=== PATIENT | male | born 1950 | race Caucasian/White ===

== ENCOUNTER 2024-04-13 23:39 | Observation (INO) | payer MEDICARE, OTHER ==
[2024-04-13] MEDS ORDERED: DUONEB 0.5-3 MG/3 ml Neb IH ONE (23:49)
[2024-04-13 23:50] LABS: A-aADO2 520; ABG HEMOGLOBIN 13.9; ABG POTASSIUM 4.4 (3.5-5.1); ARTERIAL BLD GAS O2 SATURATION 98.1 % (95-100); ARTERIAL BLOOD GAS FIO2 100 %; ARTERIAL BLOOD GAS PO2 98 mmHg (75-100); ARTERIAL BLOOD GAS pH 7.18 (7.35-7.45); CARBOXYHEMOGLOBIN 2.2 % THgb (0.0-6.9); HCO3- 28.4 (22-28); HGB O2 SAT 95.2 g/dF (94-100); Lactic Acid 0.9 (0.4-2.0); Methhemoglobin 0.9 % (1.4-1.5); paO2 pAO1 0.16
[2024-04-13 23:51] LABS: ABG SITE RIGHT RADIAL; ALLEN TEST OK? YES; ARTERIAL BLOOD GAS PCO2 76 mmHg (35-45)
[2024-04-13] MEDS: DUONEB 0.5-3 MG/3 ml Neb IH ONE (23:53)
--- NOTE | 2024-04-13 23:53 | ERPHSYRPT ---
- History of Present Illness Time Seen by Provider: 04/13/24 23:40 Source: EMS Exam Limitations: clinical condition Physician History: This is a 73-year-old white male patient was brought in by the recording artist service because of worsening shortness of breath throughout the day. Apparently, per paramedics, who provided additional independent information secondary to page ent's clinical condition, patient started having worsening shortness of breath this morning. Paramedics were called this evening and patient was found in his car getting ready to drive to the emergency department. Patient continues to smoke tobacco cigarettes. He was found to be hypoxic on arrival paramedics. Patient was given a DuoNeb, Solu-Medrol 125 mg, nitroglycerin sublingually and Nitropaste to help with management of his potential CHF issues per paramedics. Patient arrives to our emergency department in atrial flutter with a heart rate of 101, respiratory rate of 17 breaths/min and 96% on CPAP. Patient has a history of atrial fibrillation/flutter and is taking Coreg and lisinopril for hypertension. Patient is also on Eliquis. He has a history of hyperlipidemia and COPD. Timing/Duration: today Severity of Dyspnea-Max: moderate Severity of Dyspnea-Current: moderate Modifying Factors: Improves With: albuterol nebulizer, oxygen Associated Symptoms: wheezing, weakness, No chest pain/discomfort Allergies/Adverse Reactions: Penicillins Allergy (Verified 04/13/24 23:41) Home Medications: Albuterol Sulfate [Proair Digihaler] 2 puffs IH DAILY 04/14/24 [History] Apixaban [Eliquis] 5 mg PO BID 04/14/24 [History] Atorvastatin Calcium [Lipitor] 20 mg PO DAILY 04/14/24 [History] Tiotropium [place] Inhaler [Spiriva 18 Mcg/Cap Inhaler] 2 puffs IH DAILY 04/14/24 [History] carvediloL [Coreg] 25 mg PO BID 04/14/24 [History] lisinopriL [Lisinopril] 40 mg PO DAILY 04/14/24 [History] Travel Risk - International Travel Have you traveled outside of the country in past 3 weeks: No - Emerging Infectious Disease Are you exhibiting symptoms associated with any current EIDs: Yes Symptoms: Shortness of Breath - Review of Systems Constitutional: Lethargy, Weakness Eyes: No Symptoms Ears, Nose, & Throat: No Symptoms Respiratory: Dyspnea, Wheezing Cardiac: No Symptoms Abdominal/Gastrointestinal: No Symptoms Genitourinary Symptoms: No Symptoms Musculoskeletal: No Symptoms Skin: No Symptoms Neurological: Lethargy Psychological: No Symptoms Endocrine: No Symptoms Hematologic/Lymphatic: No Symptoms Immunological/Allergic: No Symptoms All Other Systems: Reviewed and Negative - Past Medical History Pertinent Past Medical History: Yes - Nursing Vital Signs Nursing Vital Signs: Initial Vital Signs Temperature 97.3 F 04/13/24 23:39 Pulse Rate 104 H 04/13/24 23:39 Respiratory Rate 38 H 04/13/24 23:39 Blood Pressure 175/103 04/13/24 23:39 O2 Sat by Pulse Oximetry 95 04/13/24 23:39 Pain Scale Pain Intensity 0 - Physical Exam General Appearance: moderate distress, alert, thin Eye Exam: PERRL/EOMI, post op pupil defect (L) Ears, Nose, Throat Exam: hearing grossly normal, normal ENT inspection Neck Exam: normal inspection, non-tender, supple, full range of motion Respiratory Exam: respiratory distress, airway intact, crackles/rales, wheezing Cardiovascular/Chest Exam: tachycardia Abdominal/Gastrointestinal Exam: soft, normal bowel sounds, No tenderness Rectal Exam: not done Extremity Exam: non-tender, normal range of motion, pedal edema (Bilateral 1+) Neurologic Exam: other (Lethargic) Skin Exam: normal color, warm, diaphoresis Lymphatic Exam: No adenopathy SpO2 Interpretation: normal O2 Delivery: CPAP - Course Nursing assessment & vital signs reviewed: Yes EKG Interpreted by Me: RATE (101), NORMAL AXIS, NORMAL INTERVALS, Right Bundle Branch Block, Other (Atrial flutter. QTc 521. No evidence of acute ischemia on this initial twelve-lead EKG. No comparison twelve-lead EKG available) Ordered Tests: Active Orders 24 hr Category Date Time Status Structural Worker STAT Care 04/13/24 23:46 Active Catheter-[place] Geiger STAT Care 04/14/24 00:13 Active EKG-ER Only STAT Care 04/13/24 23:45 Active IV Insertion STAT Care 04/13/24 23:45 Active Pulse Oximetry (ED) STAT Care 04/13/24 23:45 Active CHEST 1 VIEW (PORTABLE) Stat Exams 04/13/24 23:46 Taken ABG [ARTERIAL BLOOD GASES] Stat Lab 04/14/24 01:08 Completed ARTERIAL BLOOD GASES Stat Lab 04/13/24 23:40 Completed CBC W DIFF Stat Lab 04/13/24 23:55 Completed CMP Stat Lab 04/13/24 23:55 Completed CULTURE,URINE Stat Lab 04/14/24 00:17 Received D-DIMER QUANTITATIVE Stat Lab 04/13/24 23:45 Completed Lactic Acid Stat Lab 04/13/24 23:40 Completed MAGNESIUM Stat Lab 04/13/24 23:55 Completed NT PRO BNPII Stat Lab 04/13/24 23:55 Completed POCT GLUCOSE Stat Lab 04/13/24 23:46 Completed TROPONIN Q4H Lab 04/13/24 23:55 Completed TROPONIN Q4H Lab 04/14/24 03:45 Ordered TROPONIN Q4H Lab 04/14/24 07:45 Ordered UA W/RFX UR CULTURE Stat Lab 04/14/24 00:17 Completed BiPap/CPAP STAT RT 04/13/24 23:45 Active Respiratory Therapy Assessment DAILY RT 04/14/24 00:13 Active Medication Summary Generic Name Dose Route Start Last Admin Trade Name Freq PRN Reason Stop Dose Admin Ceftriaxone Sodium 1 gm in 100 mls @ 200 mls/hr 04/14/24 01:33 04/14/24 01:51 Rocephin 1 Gm / 100 Ml Nacl IV 04/14/24 02:02 200 mls/hr STAT ONE 200 mls/hr Administration Discontinued Medications Generic Name Dose Route Start Last Admin Trade Name Freq PRN Reason Stop Dose Admin Albuterol/Ipratropium Confirm 04/13/24 23:49 Ipratropium/Albuterol Sulfate 3 Ml Ampul.Neb Administered 04/13/24 23:50 Dose 3 ml IH .STK-MED ONE Albuterol/Ipratropium 3 ml 04/14/24 00:12 04/13/24 23:53 Ipratropium/Albuterol Sulfate 3 Ml Ampul.Neb IH 04/14/24 00:13 3 ml STAT ONE Administration Sodium Chloride 1,000 mls @ 999 mls/hr 04/14/24 00:13 04/14/24 00:43 Sodium Chloride 0.9% 1000 Ml IV 04/14/24 01:13 999 mls/hr .Q1H1M STA Administration Sodium Chloride Confirm 04/14/24 00:42 Sodium Chloride 0.9% 1000 Ml Administered 04/14/24 00:43 Dose 1,000 mls @ ud .ROUTE .STK-MED ONE Ceftriaxone Sodium Confirm 04/14/24 01:48 Rocephin 1 Gm / 100 Ml Nacl Administered 04/14/24 01:49 Dose 1 gm in 100 mls @ ud IV .STK-MED ONE Sodium Bicarbonate 50 meq 04/13/24 23:49 04/14/24 00:07 Sodium Bicarbonate 1 Meq/Ml 50ml Syringe IV 04/13/24 23:50 50 meq STAT ONE Administration Sodium Bicarbonate Confirm 04/14/24 00:06 Sodium Bicarbonate 1 Meq/Ml 50ml Syringe Administered 04/14/24 00:07 Dose 50 meq IV .STK-MED ONE Lab/Rad Data: Laboratory Result Diagrams 04/13/24 23:55 04/13/24 23:55 Laboratory Results 04/14/24 04/14/24 04/13/24 Range/Units 01:08 00:17 Unknown WBC (4.23-9.07) x10^3/uL RBC (4.63-6.08) x10^6/uL Hgb (13.7-17.5) g/dL Hct (40.1-51.0) % MCV (79.0-92.2) fL MCH (25.7-32.2) pg MCHC (32.3-36.5) g/dL RDW (11.6-14.4) % Plt Count (163-337) x10^3/uL MPV (9.4-12.4) fL Gran % (34.0-67.9) % Immature Gran % (Auto) (0.001-0.429) % Nucleat RBC Rel Count (0.00-0.2) % Eos # (Auto) (0.04-0.54) x10^3/uL Immature Gran # (Auto) (0.001-0.031) x10^3u/L Absolute Lymphs (auto) (1.32-3.57) x10^3/uL Absolute Monos (auto) (0.30-0.82) x10^3/uL Absolute Nucleated RBC (0.00-0.012) x10^3u/L Lymphocytes % (21.8-53.1) % Monocytes % (5.3-12.2) % Eosinophils % (0.8-7.0) % Basophils % (0.2-1.2) % Absolute Granulocytes (1.78-5.38) x10^3/uL Basophils # (0.01-0.08) x10^3/uL D-Dimer (0.0-0.50) mg/L Puncture Site LRA pCO2 64 H* (35-45) mmHg pO2 211 H* (75-100) mmHg Base Excess 5.0 H (-2.0-2.0) O2 Saturation 96.9 (94-100) g/dF ABG pH 7.32 L (7.35-7.45) ABG HCO3 33.0 H* (22-28) ABG O2 Sat (Measured) 100.0 (95-100) % Camilo Test YES A-a Gradient 66 a/A Ratio 0.76 Hemoglobin 13.0 Carboxyhemoglobin 1.9 (0.0-6.9) % THgb Methemoglobin 1.2 L (1.4-1.5) % Potassium 4.4 (3.5-5.1) Temperature 37.0 C POC O2 Flow Rate 50 % Sodium (135-145) mmol/L Chloride (98-107) mmol/L Carbon Dioxide (22-30) mmol/L Anion Gap (5-15) MEQ/L BUN (9-20) mg/dL Creatinine (0.66-1.25) mg/dL Estimated GFR ML/MIN Glucose (74-106) mg/dL POC Glucometer (74 to 106) mg/dL Lactic Acid (0.4-2.0) Calcium (8.4-10.2) mg/dL Magnesium (1.6-2.3) mg/dL Total Bilirubin (0.2-1.3) mg/dL AST (17-59) U/L ALT (0-50) U/L Alkaline Phosphatase (38-126) U/L Ammonia (9-30) umol/L Troponin I (0.000-0.033) ng/mL NT-Pro-B Natriuret Pep (<300) pg/mL Serum Total Protein (6.3-8.2) g/dL Albumin (3.5-5.0) g/dL Urine Color Yellow (Yellow) Urine Appearance Clear (Clear) Urine pH 6.0 (4.6-8.0) Ur Specific [place] 1.010 (1.005-1.030) Urine Protein 30 (Negative) Urine Glucose (UA) Negative (Negative) mg/dL Urine Ketones Negative (Negative) Urine Blood Moderate A (Negative) Urine Nitrite Negative (Negative) Urine Bilirubin Negative (Negative) Urine Urobilinogen 1.0 A (0.2) mg/dL Ur Leukocyte Esterase Negative (Negative) U Hyaline Cast (Auto) 3-5 A (0-2) /LPF Urine Microscopic RBC 21-50 A (0-5) /HPF Urine Microscopic WBC 6-10 A (0-5) /HPF Ur Epithelial Cells None Seen (None Seen) /HPF Urine Bacteria None Seen (None Seen) /HPF Urine Culture Reflexed ORDERED SEPARATELY (NO) Monoscreen NEGATIVE (NEGATIVE) Influenza Type A Ag (NEGATIVE) Influenza Type B Ag (NEGATIVE) RSV (PCR) (NEGATIVE) SARS-CoV-2 (PCR) (NEGATIVE) Slides for Path Review 04/13/24 04/13/24 04/13/24 Range/Units 23:55 23:55 23:55 WBC (4.23-9.07) x10^3/uL RBC (4.63-6.08) x10^6/uL Hgb (13.7-17.5) g/dL Hct (40.1-51.0) % MCV (79.0-92.2) fL MCH (25.7-32.2) pg MCHC (32.3-36.5) g/dL RDW (11.6-14.4) % Plt Count (163-337) x10^3/uL MPV (9.4-12.4) fL Gran % (34.0-67.9) % Immature Gran % (Auto) (0.001-0.429) % Nucleat RBC Rel Count (0.00-0.2) % Eos # (Auto) (0.04-0.54) x10^3/uL Immature Gran # (Auto) (0.001-0.031) x10^3u/L Absolute Lymphs (auto) (1.32-3.57) x10^3/uL Absolute Monos (auto) (0.30-0.82) x10^3/uL Absolute Nucleated RBC (0.00-0.012) x10^3u/L Lymphocytes % (21.8-53.1) % Monocytes % (5.3-12.2) % Eosinophils % (0.8-7.0) % Basophils % (0.2-1.2) % Absolute Granulocytes (1.78-5.38) x10^3/uL Basophils # (0.01-0.08) x10^3/uL D-Dimer (0.0-0.50) mg/L Puncture Site pCO2 (35-45) mmHg pO2 (75-100) mmHg Base Excess (-2.0-2.0) O2 Saturation (94-100) g/dF ABG pH (7.35-7.45) ABG HCO3 (22-28) ABG O2 Sat (Measured) (95-100) % Camilo Test A-a Gradient a/A Ratio Hemoglobin Carboxyhemoglobin (0.0-6.9) % THgb Methemoglobin (1.4-1.5) % Potassium 4.5 (3.5-5.1) Temperature C POC O2 Flow Rate % Sodium 140 (135-145) mmol/L Chloride 103 (98-107) mmol/L Carbon Dioxide 28 (22-30) mmol/L Anion Gap 14.3 (5-15) MEQ/L BUN 14 (9-20) mg/dL Creatinine 1.27 H (0.66-1.25) mg/dL Estimated GFR 60.4 ML/MIN Glucose 169 H (74-106) mg/dL POC Glucometer (74 to 106) mg/dL Lactic Acid (0.4-2.0) Calcium 8.7 (8.4-10.2) mg/dL Magnesium 1.9 (1.6-2.3) mg/dL Total Bilirubin 0.90 (0.2-1.3) mg/dL AST 23 (17-59) U/L ALT 18 (0-50) U/L Alkaline Phosphatase 150 H (38-126) U/L Ammonia 36 H (9-30) umol/L Troponin I < 0.012 (0.000-0.033) ng/mL NT-Pro-B Natriuret Pep 689 (<300) pg/mL Serum Total Protein 7.7 (6.3-8.2) g/dL Albumin 4.1 (3.5-5.0) g/dL Urine Color (Yellow) Urine Appearance (Clear) Urine pH (4.6-8.0) Ur Specific [place] (1.005-1.030) Urine Protein (Negative) Urine Glucose (UA) (Negative) mg/dL Urine Ketones (Negative) Urine Blood (Negative) Urine Nitrite (Negative) Urine Bilirubin (Negative) Urine Urobilinogen (0.2) mg/dL Ur Leukocyte Esterase (Negative) U Hyaline Cast (Auto) (0-2) /LPF Urine Microscopic RBC (0-5) /HPF Urine Microscopic WBC (0-5) /HPF Ur Epithelial Cells (None Seen) /HPF Urine Bacteria (None Seen) /HPF Urine Culture Reflexed (NO) Monoscreen (NEGATIVE) Influenza Type A Ag (NEGATIVE) Influenza Type B Ag (NEGATIVE) RSV (PCR) (NEGATIVE) SARS-CoV-2 (PCR) (NEGATIVE) Slides for Path Review 04/13/24 04/13/24 04/13/24 Range/Units 23:55 23:46 23:45 WBC 13.4 H (4.23-9.07) x10^3/uL RBC 4.54 L (4.63-6.08) x10^6/uL Hgb 13.6 L (13.7-17.5) g/dL Hct 41.8 (40.1-51.0) % MCV 92.1 (79.0-92.2) fL MCH 30.0 (25.7-32.2) pg MCHC 32.5 (32.3-36.5) g/dL RDW 12.5 (11.6-14.4) % Plt Count 189 (163-337) x10^3/uL MPV 11.2 (9.4-12.4) fL Gran % 45.7 (34.0-67.9) % Immature Gran % (Auto) 0.4 (0.001-0.429) % Nucleat RBC Rel Count 0.0 (0.00-0.2) % Eos # (Auto) 0.81 H (0.04-0.54) x10^3/uL Immature Gran # (Auto) 0.05 H (0.001-0.031) x10^3u/L Absolute Lymphs (auto) 5.04 H (1.32-3.57) x10^3/uL Absolute Monos (auto) 1.21 H (0.30-0.82) x10^3/uL Absolute Nucleated RBC 0.00 (0.00-0.012) x10^3u/L Lymphocytes % 37.7 (21.8-53.1) % Monocytes % 9.1 (5.3-12.2) % Eosinophils % 6.1 (0.8-7.0) % Basophils % 1.0 (0.2-1.2) % Absolute Granulocytes 6.13 H (1.78-5.38) x10^3/uL Basophils # 0.13 H (0.01-0.08) x10^3/uL D-Dimer 0.46 (0.0-0.50) mg/L Puncture Site pCO2 (35-45) mmHg pO2 (75-100) mmHg Base Excess (-2.0-2.0) O2 Saturation (94-100) g/dF ABG pH (7.35-7.45) ABG HCO3 (22-28) ABG O2 Sat (Measured) (95-100) % Camilo Test A-a Gradient a/A Ratio Hemoglobin Carboxyhemoglobin (0.0-6.9) % THgb Methemoglobin (1.4-1.5) % Potassium (3.5-5.1) Temperature C POC O2 Flow Rate % Sodium (135-145) mmol/L Chloride (98-107) mmol/L Carbon Dioxide (22-30) mmol/L Anion Gap (5-15) MEQ/L BUN (9-20) mg/dL Creatinine (0.66-1.25) mg/dL Estimated GFR ML/MIN Glucose (74-106) mg/dL POC Glucometer 160 H (74 to 106) mg/dL Lactic Acid (0.4-2.0) Calcium (8.4-10.2) mg/dL Magnesium (1.6-2.3) mg/dL Total Bilirubin (0.2-1.3) mg/dL AST (17-59) U/L ALT (0-50) U/L Alkaline Phosphatase (38-126) U/L Ammonia (9-30) umol/L Troponin I (0.000-0.033) ng/mL NT-Pro-B Natriuret Pep (<300) pg/mL Serum Total Protein (6.3-8.2) g/dL Albumin (3.5-5.0) g/dL Urine Color (Yellow) Urine Appearance (Clear) Urine pH (4.6-8.0) Ur Specific [place] (1.005-1.030) Urine Protein (Negative) Urine Glucose (UA) (Negative) mg/dL Urine Ketones (Negative) Urine Blood (Negative) Urine Nitrite (Negative) Urine Bilirubin (Negative) Urine Urobilinogen (0.2) mg/dL Ur Leukocyte Esterase (Negative) U Hyaline Cast (Auto) (0-2) /LPF Urine Microscopic RBC (0-5) /HPF Urine Microscopic WBC (0-5) /HPF Ur Epithelial Cells (None Seen) /HPF Urine Bacteria (None Seen) /HPF Urine Culture Reflexed (NO) Monoscreen (NEGATIVE) Influenza Type A Ag (NEGATIVE) Influenza Type B Ag (NEGATIVE) RSV (PCR) (NEGATIVE) SARS-CoV-2 (PCR) (NEGATIVE) Slides for Path Review YES 04/13/24 04/13/24 Range/Units 23:40 00:10 WBC (4.23-9.07) x10^3/uL RBC (4.63-6.08) x10^6/uL Hgb (13.7-17.5) g/dL Hct (40.1-51.0) % MCV (79.0-92.2) fL MCH (25.7-32.2) pg MCHC (32.3-36.5) g/dL RDW (11.6-14.4) % Plt Count (163-337) x10^3/uL MPV (9.4-12.4) fL Gran % (34.0-67.9) % Immature Gran % (Auto) (0.001-0.429) % Nucleat RBC Rel Count (0.00-0.2) % Eos # (Auto) (0.04-0.54) x10^3/uL Immature Gran # (Auto) (0.001-0.031) x10^3u/L Absolute Lymphs (auto) (1.32-3.57) x10^3/uL Absolute Monos (auto) (0.30-0.82) x10^3/uL Absolute Nucleated RBC (0.00-0.012) x10^3u/L Lymphocytes % (21.8-53.1) % Monocytes % (5.3-12.2) % Eosinophils % (0.8-7.0) % Basophils % (0.2-1.2) % Absolute Granulocytes (1.78-5.38) x10^3/uL Basophils # (0.01-0.08) x10^3/uL D-Dimer (0.0-0.50) mg/L Puncture Site RIGHT RADIAL pCO2 76 H* (35-45) mmHg pO2 98 (75-100) mmHg Base Excess -2.0 (-2.0-2.0) O2 Saturation 95.2 (94-100) g/dF ABG pH 7.18 L* (7.35-7.45) ABG HCO3 28.4 H (22-28) ABG O2 Sat (Measured) 98.1 (95-100) % Camilo Test YES A-a Gradient 520 a/A Ratio 0.16 Hemoglobin 13.9 Carboxyhemoglobin 2.2 (0.0-6.9) % THgb Methemoglobin 0.9 L (1.4-1.5) % Potassium 4.4 (3.5-5.1) Temperature 37.0 C POC O2 Flow Rate 100 % Sodium (135-145) mmol/L Chloride (98-107) mmol/L Carbon Dioxide (22-30) mmol/L Anion Gap (5-15) MEQ/L BUN (9-20) mg/dL Creatinine (0.66-1.25) mg/dL Estimated GFR ML/MIN Glucose (74-106) mg/dL POC Glucometer (74 to 106) mg/dL Lactic Acid 0.9 (0.4-2.0) Calcium (8.4-10.2) mg/dL Magnesium (1.6-2.3) mg/dL Total Bilirubin (0.2-1.3) mg/dL AST (17-59) U/L ALT (0-50) U/L Alkaline Phosphatase (38-126) U/L Ammonia (9-30) umol/L Troponin I (0.000-0.033) ng/mL NT-Pro-B Natriuret Pep (<300) pg/mL Serum Total Protein (6.3-8.2) g/dL Albumin (3.5-5.0) g/dL Urine Color (Yellow) Urine Appearance (Clear) Urine pH (4.6-8.0) Ur Specific [place] (1.005-1.030) Urine Protein (Negative) Urine Glucose (UA) (Negative) mg/dL Urine Ketones (Negative) Urine Blood (Negative) Urine Nitrite (Negative) Urine Bilirubin (Negative) Urine Urobilinogen (0.2) mg/dL Ur Leukocyte Esterase (Negative) U Hyaline Cast (Auto) (0-2) /LPF Urine Microscopic RBC (0-5) /HPF Urine Microscopic WBC (0-5) /HPF Ur Epithelial Cells (None Seen) /HPF Urine Bacteria (None Seen) /HPF Urine Culture Reflexed (NO) Monoscreen (NEGATIVE) Influenza Type A Ag NEGATIVE (NEGATIVE) Influenza Type B Ag NEGATIVE (NEGATIVE) RSV (PCR) NEGATIVE (NEGATIVE) SARS-CoV-2 (PCR) NEGATIVE (NEGATIVE) Slides for Path Review - Progress Progress: improved, re-examined Air Movement: fair Progress Note: 04/13/24 23:54 My medical decision making and the assignment of high complexity to this patient's medical issue today is based on review of the patient's past medical history, review of patient's medication list, review of patient drug allergy list, history present illness and physical findings on examination. The workup in this patient includes placement of the patient on BiPAP, twelve-lead EKG, troponin level, D-dimer level, BNP, CBC, CMP, lactic acid level, ammonia level, CT scan of head without contrast, ABG, respiratory therapy intervention/management. Differential diagnosis includes but is not limited to respiratory distress, CHF exacerbation, COPD exacerbation, myocardial infarction, arrhythmia, electrolyte abnormality, pneumonia 04/14/24 00:14 I interpreted the second twelve-lead EKG that was performed approximately 5 minutes after the first 1 as we were not particularly confident that the leads were on well. The second twelve-lead EKG was performed on 04/13/2024 at 2348. Heart rate is 95 bpm. The patient has a rhythm of atrial flutter. There is nor mal axis deviation. There is normal intervals. There is evidence of right bundle branch block. The QTc is 504. This is not significantly different than the twelve-lead EKG that was performed at 2343. There is no evidence of acute ischemia on the second twelve-lead EKG. 04/14/24 00:17 Interpreted the patient's preliminary chest x-ray report. There is a questionable right mid to lower lobe lung infiltrate. 04/14/24 01:53 Chronically, the patient is doing much better. We will have respiratory therapy continue with their management and wean him off BiPAP while he is on the monitor floor. I spoke with Dr. Barksdale and I reviewed the patient history, clinical findings, and the patient's response to our medical management as well as the results of the workup performed. We both agree that the patient should be placed in the hospital on telemetry and provide him with continued respiratory t herapy management, intravenous antibiotics of Rocephin and azithromycin and repeat labs and twelve-lead EKG. Blood Culture(s) Obtained: Yes Antibiotics given: Yes Discussed with : Lissy Counseled pt/family regarding: lab results, diagnosis, need for follow-up, rad results Medical Desision Making - Discussion of managment Care discussed with:: hospitalist Reviewed:: Test results, Need for additional workup - Diagnostic Testing Diagnostic test were ordered, analyzed, and reviewed by me: Yes Radiological Interpretation: Interpreted by me - Risk of complications The pt has a high risk of morbidity or mortality based on: Decision regarding hospitilization or escalation of hosp level of care - Departure Departure Disposition: Observation Clinical Impression: Pneumonia, Acute respiratory failure with hypoxia and hypercarbia, Leukocytosis Condition: Fair Critical Care Time: Yes Critical Care Time(excluding separately billable procedures): Critical 30-74 mins (55 minutes) Referrals: DOCTOR,NO FAMILY [Primary Care Provider] - Follow up/PCP as directed
[2024-04-14] MEDS ORDERED: SODIUM BICARBONATE 50 MEQ/50 ML ABBOJECT IV ONE (00:06)
[2024-04-14] MEDS: SODIUM BICARBONATE 50 MEQ/50 ML ABBOJECT IV ONE (00:07)
[2024-04-14 00:20] LABS: Absolute Neutrophil Ct (ANC) 6.13 x10^3/uL (1.78-5.38); Basophil (Absolute #) 0.13 x10^3/uL (0.01-0.08); Eosinophil % 6.1 % (0.8-7.0); Eosinophil (Absolute #) 0.81 x10^3/uL (0.04-0.54); Hematocrit 41.8 % (40.1-51.0); Hemoglobin 13.6 g/dL (13.7-17.5); IMMATURE GRAN # 0.05 x10^3u/L (0.001-0.031); IMMATURE GRAN % 0.4 % (0.001-0.429); Lymphocyte (Absolute #) 5.04 x10^3/uL (1.32-3.57); Lymphocytes % 37.7 % (21.8-53.1); Mean Cell Volume 92.1 fL (79.0-92.2); Mean Corpuscular Hgb Concent. 32.5 g/dL (32.3-36.5); Mean Platelet Volume 11.2 fL (9.4-12.4); Monocyte (Absolute #) 1.21 x10^3/uL (0.30-0.82); Monocytes % 9.1 % (5.3-12.2); Neutrophil % 45.7 % (34.0-67.9); Platelet Count 189 x10^3/uL (163-337); Red Blood Count 4.54 x10^6/uL (4.63-6.08); Red Cell Distribution Width 12.5 % (11.6-14.4); White Blood Count 13.4 x10^3/uL (4.23-9.07)
[2024-04-14 00:38] LABS: ALBUMIN 4.1 g/dL (3.5-5.0); ALKALINE PHOSPHATASE 150 U/L (38-126); ANION GAP 14.3 MEQ/L (5-15); BLOOD UREA NITROGEN 14 mg/dL (9-20); CHLORIDE 103 mmol/L (98-107); Calcium 8.7 mg/dL (8.4-10.2); Carbon Dioxide 28 mmol/L (22-30); Creatinine 1 1.27 mg/dL (0.66-1.25); EST GLOMERULAR FILTRATION RATE 60.4 ML/MIN; Glucose 169 mg/dL (74-106); MAGNESIUM 1.9 mg/dL (1.6-2.3); Potassium 4.5 mmol/L (3.5-5.1); SGOT/AST 23 U/L (17-59); SGPT/ALT 18 U/L (0-50); SODIUM 140 mmol/L (135-145); TROPONIN < 0.012 ng/mL (0.000-0.033); Total Protein 7.7 g/dL (6.3-8.2)
[2024-04-14] MEDS ORDERED: Sodium Chloride 0.9% 1000 ML 1,000 ML ONE (00:42)
[2024-04-14] MEDS: Sodium Chloride 0.9% 1000 ML 1,000 ML IV STA (00:43)
[2024-04-14 00:49] LABS: ADD URINE CULTURE? ORDERED SEPARATELY (NO); Appearance Clear (Clear); Bacteria None Seen /HPF (None Seen); Bilirubin Negative (Negative); Blood Moderate (Negative); Epithelial Cells None Seen /HPF (None Seen); Glucose, Urine Negative (Negative); Ketones Negative (Negative); Leukocyte Esterase Negative (Negative); Nitrite Negative (Negative); Protein,Urine Dip 30 (Negative); RBC 21-50 /HPF (0-5)
[2024-04-14 01:02] LABS: INFLUENZA A NEGATIVE (NEGATIVE); INFLUENZA B NEGATIVE (NEGATIVE); RESPIRATORY SYNCTIAL VIRUS NEGATIVE (NEGATIVE); SARS-CoV-2 Xpert Express NEGATIVE (NEGATIVE)
[2024-04-14 01:08] LABS: A-aADO2 66; ABG POTASSIUM 4.4 (3.5-5.1); ARTERIAL BLOOD GAS FIO2 50 %; ARTERIAL BLOOD GAS PO2 211 mmHg (75-100); ARTERIAL BLOOD GAS pH 7.32 (7.35-7.45); CARBOXYHEMOGLOBIN 1.9 % THgb (0.0-6.9); HGB O2 SAT 96.9 g/dF (94-100); Methhemoglobin 1.2 % (1.4-1.5); paO2 pAO1 0.76
[2024-04-14 01:09] LABS: ABG SITE LRA; ARTERIAL BLOOD GAS PCO2 64 mmHg (35-45)
[2024-04-14 01:10] LABS: ALLEN TEST OK? YES
[2024-04-14 01:28] LABS: Slide Review 1 YES
[2024-04-14] MEDS ORDERED: ROCEPHIN 1 GM / 100 ML NaCl 1 GM/100 ML IVPB IV ONE (01:48)
[2024-04-14] MEDS: ROCEPHIN 1 GM / 100 ML NaCl 1 GM/100 ML IVPB IV ONE (01:51)
[2024-04-14] MEDS ORDERED: TYLENOL 325 MG PO PRN (02:51)
[2024-04-14] MEDS ORDERED: Compazine 10 MG/2 ML IV PRN (02:51)
--- NOTE | 2024-04-14 03:50 | PCM.HP ---
History of Present Illness - Chief Complaint Chief Complaint: COPD Date: 04/14/24 History of Present Illness: is a 73 year old male with a history of COPD (not on home oxygen), CHF, atrial fibrillation/flutter, and HTN, who was brought in by the field service manager macarioic e because of worsening shortness of breath throughout the day. Apparently, per paramedics, who provided additional independent information secondary to patient's clinical condition, patient started having worsening shortness of breath this morning. Paramedics were called this evening and patient was found in his car getting ready to drive to the emergency department. Patient continues to smoke tobacco cigarettes. He was found to be hypoxic on arrival paramedics. Patient was given a DuoNeb, Solu-Medrol 125 mg, nitroglycerin sublingually and Nitropaste to help with management of his potential CHF issues per paramedics. Patient arrives to our emergency department in atrial flutter with a heart rate of 101, respiratory rate of 17 breaths/min and 96% on CPAP. Patient has a history of atrial fibrillation/flutter and is taking Coreg and lisinopril for hypertension. Patient is also on Eliquis. He has a history of hyperlipidemia and COPD. He has demonstrated significant improvement after initial therapy with improved dypsnea, and has been weaned to oxygen per OR. A Geiger had been placed in the ED, and will be removed. - Review of Systems Constitutional: Fatigue Eyes: No Symptoms Ears, Nose, & Throat: No Symptoms Respiratory: Cough, Short Of Breath, Wheezing Cardiac: No Symptoms Abdominal/Gastrointestinal: No Symptoms Genitourinary Symptoms: No Symptoms Musculoskeletal: No Symptoms Skin: No Symptoms Neurological: No Symptoms Psychological: No Symptoms Endocrine: No Symptoms Hematologic/Lymphatic: No Symptoms Immunological/Allergic: No Symptoms Medications & Allergies Home Medications: Home Medication List Albuterol Sulfate [Proair Digihaler] 2 puffs IH DAILY 04/14/24 [History Confirmed 04/14/24] Apixaban [Eliquis] 5 mg PO BID 04/14/24 [History Confirmed 04/14/24] Aspirin EC 81 mg [Ecotrin 81 mg] 1 tab PO DAILY 04/14/24 [History Confirmed 04/14/24] Atorvastatin Calcium [Lipitor] 20 mg PO DAILY 04/14/24 [History Confirmed 04/14/24] Tiotropium [place] Inhaler [Spiriva 18 Mcg/Cap Inhaler] 2 puffs IH DAILY 04/14/24 [History Confirmed 04/14/24] carvediloL [Coreg] 25 mg PO BID 04/14/24 [History Confirmed 04/14/24] lisinopriL [Lisinopril] 40 mg PO DAILY 04/14/24 [History Confirmed 04/14/24] Allergies/Adverse Reactions: Allergies Allergy/AdvReac Type Severity Reaction Status Date / Time Penicillins Allergy Verified 04/13/24 23:41 - Past Medical History Past Medical History: Yes Neurological History: No Pertinent History ENT History: No Pertinent History Cardiac History: Other Respiratory History: No Pertinent History Endocrine Medical History: No Pertinent History Musculoskelatal History: Other GI Medical History: Gallbladder Disease, Hernia History: No Pertinent History Pyscho-Social History: No Pertinent History Male Reproductive Disorders: No Pertinent History Comment: pulmonic valve surgery x 3, shoulder pain - Past Surgical History Past Surgical History: Yes Neuro Surgical History: No Pertinent History Cardiac History: Valve Replacement Respiratory Surgery: No Pertinent History GI Surgical History: Cholecystectomy, Hernia Repair Genitourinary Surgical Hx: No Pertinent History Musculskeletal Surgical Hx: No Pertinent History Male Surgical History: No Pertinent History Other Surgical History: unable to obtaine - Social History Smoking Status: Former smoker Exposure to second hand smoke: No Alcohol: None Drug Use: none - Social Determinants of Health Will the patient participate in the screening: Yes Do you worry about a steady place to live?: No Do you have any problems with any of the following?: No known problems In the past 12 months,have you had to go without utilities?: No Have you or anyone in your house had to go without enough: No Transportation Issues: No Has anyone in your support network made you feel unsafe?: No Does the patient want assistance with any of the above?: No - Physical Exam Vital Signs: Vital Signs - 24 hr Temp Pulse Resp BP BP Pulse Ox 04/14/24 02:52 96.7 F 111 H 24 145/68 90 L 04/14/24 02:35 92 H 20 107/85 98 04/14/24 02:00 98.1 F 103 H 18 120/82 97 04/14/24 01:40 97.9 F 103 H 19 133/76 98 04/14/24 01:30 97.9 F 111 H 20 123/81 97 04/14/24 01:20 97.9 F 112 H 19 122/80 97 04/14/24 01:10 98.1 F 113 H 22 111/74 98 04/14/24 01:00 98.2 F 114 H 25 H 108/75 99 04/14/24 00:50 98.4 F 114 H 28 H 95/65 99 04/14/24 00:40 98.6 F 114 H 26 H 89/64 99 04/14/24 00:30 98.6 F 114 H 22 82/56 99 04/14/24 00:20 98.6 F 115 H 22 86/67 99 04/14/24 00:10 103 H 26 H 115/76 100 04/14/24 00:04 23 100 04/14/24 00:02 100 04/14/24 00:00 102 H 29 H 124/78 100 04/13/24 23:53 69 30 H 99 04/13/24 23:50 111 H 29 H 152/91 100 04/13/24 23:45 109 H 36 H 165/106 99 04/13/24 23:40 92 H 36 H 170/108 96 04/13/24 23:39 97.3 F 104 H 38 H 175/103 95 General Appearance: no apparent distress, alert Neurologic Exam: alert, oriented x 3, cooperative, flower grader II-XII nml as tested, normal mood/affect, nml cerebellar function Eye Exam: PERRL/EOMI, eyes nml inspection Ears, Nose, Throat Exam: normal ENT inspection Neck Exam: normal inspection, non-tender, supple, full range of motion Respiratory Exam: diminished breath sounds, prolonged expirations, rhonchi Cardiovascular Exam: irregular Gastrointestinal/Abdomen Exam: soft, normal bowel sounds Back Exam: normal range of motion Extremity Exam: normal inspection, normal range of motion Skin Exam: normal color Results - Labs Lab/Micro Results: Lab Results-Last 24 Hours 04/13/24 04/13/24 04/13/24 Range/Units 00:10 23:40 23:45 WBC (4.23-9.07) x10^3/uL RBC (4.63-6.08) x10^6/uL Hgb (13.7-17.5) g/dL Hct (40.1-51.0) % MCV (79.0-92.2) fL MCH (25.7-32.2) pg MCHC (32.3-36.5) g/dL RDW (11.6-14.4) % Plt Count (163-337) x10^3/uL MPV (9.4-12.4) fL Gran % (34.0-67.9) % Immature Gran % (Auto) (0.001-0.429) % Nucleat RBC Rel Count (0.00-0.2) % Eos # (Auto) (0.04-0.54) x10^3/uL Immature Gran # (Auto) (0.001-0.031) x10^3u/L Absolute Lymphs (auto) (1.32-3.57) x10^3/uL Absolute Monos (auto) (0.30-0.82) x10^3/uL Absolute Nucleated RBC (0.00-0.012) x10^3u/L Lymphocytes % (21.8-53.1) % Monocytes % (5.3-12.2) % Eosinophils % (0.8-7.0) % Basophils % (0.2-1.2) % Absolute Granulocytes (1.78-5.38) x10^3/uL Basophils # (0.01-0.08) x10^3/uL D-Dimer 0.46 (0.0-0.50) mg/L Puncture Site RIGHT RADIAL pCO2 76 H* (35-45) mmHg pO2 98 (75-100) mmHg Base Excess -2.0 (-2.0-2.0) O2 Saturation 95.2 (94-100) g/dF ABG pH 7.18 L* (7.35-7.45) ABG HCO3 28.4 H (22-28) ABG O2 Sat (Measured) 98.1 (95-100) % Camilo Test YES A-a Gradient 520 a/A Ratio 0.16 Hemoglobin 13.9 Carboxyhemoglobin 2.2 (0.0-6.9) % THgb Methemoglobin 0.9 L (1.4-1.5) % Potassium 4.4 (3.5-5.1) Temperature 37.0 C POC O2 Flow Rate 100 % Sodium (135-145) mmol/L Chloride (98-107) mmol/L Carbon Dioxide (22-30) mmol/L Anion Gap (5-15) MEQ/L BUN (9-20) mg/dL Creatinine (0.66-1.25) mg/dL Estimated GFR ML/MIN Glucose (74-106) mg/dL POC Glucometer (74 to 106) mg/dL Lactic Acid 0.9 (0.4-2.0) Calcium (8.4-10.2) mg/dL Magnesium (1.6-2.3) mg/dL Total Bilirubin (0.2-1.3) mg/dL AST (17-59) U/L ALT (0-50) U/L Alkaline Phosphatase (38-126) U/L Ammonia (9-30) umol/L Troponin I (0.000-0.033) ng/mL NT-Pro-B Natriuret Pep (<300) pg/mL Serum Total Protein (6.3-8.2) g/dL Albumin (3.5-5.0) g/dL Urine Color (Yellow) Urine Appearance (Clear) Urine pH (4.6-8.0) Ur Specific [place] (1.005-1.030) Urine Protein (Negative) Urine Glucose (UA) (Negative) mg/dL Urine Ketones (Negative) Urine Blood (Negative) Urine Nitrite (Negative) Urine Bilirubin (Negative) Urine Urobilinogen (0.2) mg/dL Ur Leukocyte Esterase (Negative) U Hyaline Cast (Auto) (0-2) /LPF Urine Microscopic RBC (0-5) /HPF Urine Microscopic WBC (0-5) /HPF Ur Epithelial Cells (None Seen) /HPF Urine Bacteria (None Seen) /HPF Urine Culture Reflexed (NO) Monoscreen (NEGATIVE) Influenza Type A Ag NEGATIVE (NEGATIVE) Influenza Type B Ag NEGATIVE (NEGATIVE) RSV (PCR) NEGATIVE (NEGATIVE) SARS-CoV-2 (PCR) NEGATIVE (NEGATIVE) Slides for Path Review 04/13/24 04/13/24 04/13/24 Range/Units 23:46 23:55 23:55 WBC 13.4 H (4.23-9.07) x10^3/uL RBC 4.54 L (4.63-6.08) x10^6/uL Hgb 13.6 L (13.7-17.5) g/dL Hct 41.8 (40.1-51.0) % MCV 92.1 (79.0-92.2) fL MCH 30.0 (25.7-32.2) pg MCHC 32.5 (32.3-36.5) g/dL RDW 12.5 (11.6-14.4) % Plt Count 189 (163-337) x10^3/uL MPV 11.2 (9.4-12.4) fL Gran % 45.7 (34.0-67.9) % Immature Gran % (Auto) 0.4 (0.001-0.429) % Nucleat RBC Rel Count 0.0 (0.00-0.2) % Eos # (Auto) 0.81 H (0.04-0.54) x10^3/uL Immature Gran # (Auto) 0.05 H (0.001-0.031) x10^3u/L Absolute Lymphs (auto) 5.04 H (1.32-3.57) x10^3/uL Absolute Monos (auto) 1.21 H (0.30-0.82) x10^3/uL Absolute Nucleated RBC 0.00 (0.00-0.012) x10^3u/L Lymphocytes % 37.7 (21.8-53.1) % Monocytes % 9.1 (5.3-12.2) % Eosinophils % 6.1 (0.8-7.0) % Basophils % 1.0 (0.2-1.2) % Absolute Granulocytes 6.13 H (1.78-5.38) x10^3/uL Basophils # 0.13 H (0.01-0.08) x10^3/uL D-Dimer (0.0-0.50) mg/L Puncture Site pCO2 (35-45) mmHg pO2 (75-100) mmHg Base Excess (-2.0-2.0) O2 Saturation (94-100) g/dF ABG pH (7.35-7.45) ABG HCO3 (22-28) ABG O2 Sat (Measured) (95-100) % Camilo Test A-a Gradient a/A Ratio Hemoglobin Carboxyhemoglobin (0.0-6.9) % THgb Methemoglobin (1.4-1.5) % Potassium 4.5 (3.5-5.1) Temperature C POC O2 Flow Rate % Sodium 140 (135-145) mmol/L Chloride 103 (98-107) mmol/L Carbon Dioxide 28 (22-30) mmol/L Anion Gap 14.3 (5-15) MEQ/L BUN 14 (9-20) mg/dL Creatinine 1.27 H (0.66-1.25) mg/dL Estimated GFR 60.4 ML/MIN Glucose 169 H (74-106) mg/dL POC Glucometer 160 H (74 to 106) mg/dL Lactic Acid (0.4-2.0) Calcium 8.7 (8.4-10.2) mg/dL Magnesium 1.9 (1.6-2.3) mg/dL Total Bilirubin 0.90 (0.2-1.3) mg/dL AST 23 (17-59) U/L ALT 18 (0-50) U/L Alkaline Phosphatase 150 H (38-126) U/L Ammonia (9-30) umol/L Troponin I < 0.012 (0.000-0.033) ng/mL NT-Pro-B Natriuret Pep (<300) pg/mL Serum Total Protein 7.7 (6.3-8.2) g/dL Albumin 4.1 (3.5-5.0) g/dL Urine Color (Yellow) Urine Appearance (Clear) Urine pH (4.6-8.0) Ur Specific [place] (1.005-1.030) Urine Protein (Negative) Urine Glucose (UA) (Negative) mg/dL Urine Ketones (Negative) Urine Blood (Negative) Urine Nitrite (Negative) Urine Bilirubin (Negative) Urine Urobilinogen (0.2) mg/dL Ur Leukocyte Esterase (Negative) U Hyaline Cast (Auto) (0-2) /LPF Urine Microscopic RBC (0-5) /HPF Urine Microscopic WBC (0-5) /HPF Ur Epithelial Cells (None Seen) /HPF Urine Bacteria (None Seen) /HPF Urine Culture Reflexed (NO) Monoscreen (NEGATIVE) Influenza Type A Ag (NEGATIVE) Influenza Type B Ag (NEGATIVE) RSV (PCR) (NEGATIVE) SARS-CoV-2 (PCR) (NEGATIVE) Slides for Path Review YES 04/13/24 04/13/24 04/13/24 Range/Units 23:55 23:55 Unknown WBC (4.23-9.07) x10^3/uL RBC (4.63-6.08) x10^6/uL Hgb (13.7-17.5) g/dL Hct (40.1-51.0) % MCV (79.0-92.2) fL MCH (25.7-32.2) pg MCHC (32.3-36.5) g/dL RDW (11.6-14.4) % Plt Count (163-337) x10^3/uL MPV (9.4-12.4) fL Gran % (34.0-67.9) % Immature Gran % (Auto) (0.001-0.429) % Nucleat RBC Rel Count (0.00-0.2) % Eos # (Auto) (0.04-0.54) x10^3/uL Immature Gran # (Auto) (0.001-0.031) x10^3u/L Absolute Lymphs (auto) (1.32-3.57) x10^3/uL Absolute Monos (auto) (0.30-0.82) x10^3/uL Absolute Nucleated RBC (0.00-0.012) x10^3u/L Lymphocytes % (21.8-53.1) % Monocytes % (5.3-12.2) % Eosinophils % (0.8-7.0) % Basophils % (0.2-1.2) % Absolute Granulocytes (1.78-5.38) x10^3/uL Basophils # (0.01-0.08) x10^3/uL D-Dimer (0.0-0.50) mg/L Puncture Site pCO2 (35-45) mmHg pO2 (75-100) mmHg Base Excess (-2.0-2.0) O2 Saturation (94-100) g/dF ABG pH (7.35-7.45) ABG HCO3 (22-28) ABG O2 Sat (Measured) (95-100) % Camilo Test A-a Gradient a/A Ratio Hemoglobin Carboxyhemoglobin (0.0-6.9) % THgb Methemoglobin (1.4-1.5) % Potassium (3.5-5.1) Temperature C POC O2 Flow Rate % Sodium (135-145) mmol/L Chloride (98-107) mmol/L Carbon Dioxide (22-30) mmol/L Anion Gap (5-15) MEQ/L BUN (9-20) mg/dL Creatinine (0.66-1.25) mg/dL Estimated GFR ML/MIN Glucose (74-106) mg/dL POC Glucometer (74 to 106) mg/dL Lactic Acid (0.4-2.0) Calcium (8.4-10.2) mg/dL Magnesium (1.6-2.3) mg/dL Total Bilirubin (0.2-1.3) mg/dL AST (17-59) U/L ALT (0-50) U/L Alkaline Phosphatase (38-126) U/L Ammonia 36 H (9-30) umol/L Troponin I (0.000-0.033) ng/mL NT-Pro-B Natriuret Pep 689 (<300) pg/mL Serum Total Protein (6.3-8.2) g/dL Albumin (3.5-5.0) g/dL Urine Color (Yellow) Urine Appearance (Clear) Urine pH (4.6-8.0) Ur Specific [place] (1.005-1.030) Urine Protein (Negative) Urine Glucose (UA) (Negative) mg/dL Urine Ketones (Negative) Urine Blood (Negative) Urine Nitrite (Negative) Urine Bilirubin (Negative) Urine Urobilinogen (0.2) mg/dL Ur Leukocyte Esterase (Negative) U Hyaline Cast (Auto) (0-2) /LPF Urine Microscopic RBC (0-5) /HPF Urine Microscopic WBC (0-5) /HPF Ur Epithelial Cells (None Seen) /HPF Urine Bacteria (None Seen) /HPF Urine Culture Reflexed (NO) Monoscreen NEGATIVE (NEGATIVE) Influenza Type A Ag (NEGATIVE) Influenza Type B Ag (NEGATIVE) RSV (PCR) (NEGATIVE) SARS-CoV-2 (PCR) (NEGATIVE) Slides for Path Review 04/14/24 04/14/24 Range/Units 00:17 01:08 WBC (4.23-9.07) x10^3/uL RBC (4.63-6.08) x10^6/uL Hgb (13.7-17.5) g/dL Hct (40.1-51.0) % MCV (79.0-92.2) fL MCH (25.7-32.2) pg MCHC (32.3-36.5) g/dL RDW (11.6-14.4) % Plt Count (163-337) x10^3/uL MPV (9.4-12.4) fL Gran % (34.0-67.9) % Immature Gran % (Auto) (0.001-0.429) % Nucleat RBC Rel Count (0.00-0.2) % Eos # (Auto) (0.04-0.54) x10^3/uL Immature Gran # (Auto) (0.001-0.031) x10^3u/L Absolute Lymphs (auto) (1.32-3.57) x10^3/uL Absolute Monos (auto) (0.30-0.82) x10^3/uL Absolute Nucleated RBC (0.00-0.012) x10^3u/L Lymphocytes % (21.8-53.1) % Monocytes % (5.3-12.2) % Eosinophils % (0.8-7.0) % Basophils % (0.2-1.2) % Absolute Granulocytes (1.78-5.38) x10^3/uL Basophils # (0.01-0.08) x10^3/uL D-Dimer (0.0-0.50) mg/L Puncture Site LRA pCO2 64 H* (35-45) mmHg pO2 211 H* (75-100) mmHg Base Excess 5.0 H (-2.0-2.0) O2 Saturation 96.9 (94-100) g/dF ABG pH 7.32 L (7.35-7.45) ABG HCO3 33.0 H* (22-28) ABG O2 Sat (Measured) 100.0 (95-100) % Camilo Test YES A-a Gradient 66 a/A Ratio 0.76 Hemoglobin 13.0 Carboxyhemoglobin 1.9 (0.0-6.9) % THgb Methemoglobin 1.2 L (1.4-1.5) % Potassium 4.4 (3.5-5.1) Temperature 37.0 C POC O2 Flow Rate 50 % Sodium (135-145) mmol/L Chloride (98-107) mmol/L Carbon Dioxide (22-30) mmol/L Anion Gap (5-15) MEQ/L BUN (9-20) mg/dL Creatinine (0.66-1.25) mg/dL Estimated GFR ML/MIN Glucose (74-106) mg/dL POC Glucometer (74 to 106) mg/dL Lactic Acid (0.4-2.0) Calcium (8.4-10.2) mg/dL Magnesium (1.6-2.3) mg/dL Total Bilirubin (0.2-1.3) mg/dL AST (17-59) U/L ALT (0-50) U/L Alkaline Phosphatase (38-126) U/L Ammonia (9-30) umol/L Troponin I (0.000-0.033) ng/mL NT-Pro-B Natriuret Pep (<300) pg/mL Serum Total Protein (6.3-8.2) g/dL Albumin (3.5-5.0) g/dL Urine Color Yellow (Yellow) Urine Appearance Clear (Clear) Urine pH 6.0 (4.6-8.0) Ur Specific [place] 1.010 (1.005-1.030) Urine Protein 30 (Negative) Urine Glucose (UA) Negative (Negative) mg/dL Urine Ketones Negative (Negative) Urine Blood Moderate A (Negative) Urine Nitrite Negative (Negative) Urine Bilirubin Negative (Negative) Urine Urobilinogen 1.0 A (0.2) mg/dL Ur Leukocyte Esterase Negative (Negative) U Hyaline Cast (Auto) 3-5 A (0-2) /LPF Urine Microscopic RBC 21-50 A (0-5) /HPF Urine Microscopic WBC 6-10 A (0-5) /HPF Ur Epithelial Cells None Seen (None Seen) /HPF Urine Bacteria None Seen (None Seen) /HPF Urine Culture Reflexed ORDERED SEPARATELY (NO) Monoscreen (NEGATIVE) Influenza Type A Ag (NEGATIVE) Influenza Type B Ag (NEGATIVE) RSV (PCR) (NEGATIVE) SARS-CoV-2 (PCR) (NEGATIVE) Slides for Path Review - Radiology Impressions Radiology Exams & Impressions: Radiology Procedures Category Date Time Status CHEST 1 VIEW (PORTABLE) Stat Exams 04/13/24 23:46 Taken - Other Procedures and Tests Respiratory Therapy 04/14/24 02:51 Respiratory Therapy Consult ONCE 04/14/24 03:32 RT Screen per Nursing Assess ONCE Assessment/Plan (1) Acute respiratory failure with hypoxia and hypercarbia Current Visit: Yes Status: Acute Assessment & Plan: Patiient improved with CPAP. Continue nebs, antibiotics, steroids, and oxygen we an. Assess ambulatory O2 needs, but patient is indicating that he will decline home O2 even if it is clinically indicated. Code(s): J96.01 - ACUTE RESPIRATORY FAILURE WITH HYPOXIA; J96.02 - ACUTE RESPIRATORY FAILURE WITH HYPERCAPNIA (2) Pneumonia Current Visit: Yes Status: Acute Assessment & Plan: Antibiotics. Monitor clinical course. Code(s): J18.9 - PNEUMONIA, UNSPECIFIED ORGANISM (3) Leukocytosis Current Visit: Yes Status: Acute Assessment & Plan: Will monitor WBC trend, but it is noted that the patient will be on steroids. Code(s): D72.829 - ELEVATED WHITE BLOOD CELL COUNT, UNSPECIFIED (4) UTI (urinary tract infection) Current Visit: Yes Status: Acute Assessment & Plan: IV antibiotics. Follow cultures. Code(s): N39.0 - URINARY TRACT INFECTION, SITE NOT SPECIFIED Telemedicine Encounter - Telemedicine Encounter Telemedicine Encounter: The entirety of this visit was performed using real-time audio and video connection between my location and the patients location with the assistance of a surrogate at the patients location. Written or verbal consent was obtained from the patient/guardian to perform this visit using synchronous telemedicine technology. Patient identification verification was completed. Any patient questions regarding the telemedicine interaction were answered.
[2024-04-14 04:31] LABS: A-aADO2 36; ABG HEMOGLOBIN 13.1; ARTERIAL BLD GAS O2 SATURATION 98.8 % (95-100); ARTERIAL BLOOD GAS BASE EXCESS 1.2 (-2.0-2.0); ARTERIAL BLOOD GAS FIO2 28 %; ARTERIAL BLOOD GAS PCO2 57 mmHg (35-45); ARTERIAL BLOOD GAS PO2 92 mmHg (75-100); ARTERIAL BLOOD GAS pH 7.31 (7.35-7.45); HCO3- 28.7 (22-28); HGB O2 SAT 95.8 g/dF (94-100); Methhemoglobin 1.1 % (1.4-1.5); paO2 pAO1 0.72
[2024-04-14 04:32] LABS: ABG SITE LRA; ALLEN TEST OK? YES
[2024-04-14] MEDS: Nicoderm CQ 21 MG TOP SCH ×2 (04:36→10:21)
[2024-04-14] MEDS ORDERED: VENTOLIN COMMON CANISTER IH PRN (04:56)
[2024-04-14] MEDS ORDERED: solu-MEDROL ONE (04:57)
[2024-04-14] MEDS ORDERED: Sterile H2O 10 ml IJ ONE (04:57)
[2024-04-14] MEDS: solu-MEDROL 40 MG, Sterile H2O 10 ml 1 ML IV SCH (05:15)
[2024-04-14] MEDS: Sodium Chloride 0.9% 1000 ML 1,000 ML IV SCH (05:15)
[2024-04-14 05:33] LABS: Absolute Neutrophil Ct (ANC) 10.65 x10^3/uL (1.78-5.38); BASOPHIL % 0.3 % (0.2-1.2); Basophil (Absolute #) 0.03 x10^3/uL (0.01-0.08); Eosinophil % 0.3 % (0.8-7.0); Eosinophil (Absolute #) 0.03 x10^3/uL (0.04-0.54); Hematocrit 38.9 % (40.1-51.0); Hemoglobin 12.4 g/dL (13.7-17.5); IMMATURE GRAN # 0.05 x10^3u/L (0.001-0.031); IMMATURE GRAN % 0.4 % (0.001-0.429); Lymphocyte (Absolute #) 0.76 x10^3/uL (1.32-3.57); Lymphocytes % 6.5 % (21.8-53.1); Mean Cell Volume 91.3 fL (79.0-92.2); Mean Corpuscular Hemoglobin 29.1 pg (25.7-32.2); Mean Corpuscular Hgb Concent. 31.9 g/dL (32.3-36.5); Mean Platelet Volume 11.2 fL (9.4-12.4); Monocytes % 0.9 % (5.3-12.2); Neutrophil % 91.6 % (34.0-67.9); Platelet Count 141 x10^3/uL (163-337); Red Blood Count 4.26 x10^6/uL (4.63-6.08); Red Cell Distribution Width 12.7 % (11.6-14.4); White Blood Count 11.6 x10^3/uL (4.23-9.07)
[2024-04-14 05:58] LABS: ALBUMIN 3.7 g/dL (3.5-5.0); ANION GAP 10.7 MEQ/L (5-15); BILIRUBIN,TOTAL 0.8 mg/dL (0.2-1.3); Calcium 8.5 mg/dL (8.4-10.2); Creatinine 1 1.14 mg/dL (0.66-1.25); EST GLOMERULAR FILTRATION RATE 68.8 ML/MIN; Potassium 4.3 mmol/L (3.5-5.1); Total Protein 7.1 g/dL (6.3-8.2)
[2024-04-14] MEDS ORDERED: Spiriva 18 Mcg/Cap Inhaler IH ONE (06:36)
[2024-04-14] MEDS: Spiriva 18 Mcg/Cap Inhaler IH SCH (06:41)
[2024-04-14] MEDS: Acidophilus TABLET PO SCH (08:42)
[2024-04-14] MEDS: COREG 12.5 MG PO SCH (08:43)
[2024-04-14] MEDS: Zestril 20 MG PO SCH (08:44)
[2024-04-14] MEDS: ELIQUIS 2.5 MG TABLET PO SCH (08:44)
[2024-04-14] MEDS: ECOTRIN 81 MG PO SCH (08:44)
[2024-04-14] MEDS: Zithromax 500 MG/ 250 ML NaCl Premix 500 MG/250 ML IVPB IV SCH (08:45)
[2024-04-14] MEDS: ZOCOR 20MG PO SCH (08:45)
--- NOTE | 2024-04-14 08:45 | XRAY ---
Indication: Short of breath. Comparison: None Portable chest demonstrates COPD with minimal bilateral subsegmental atelectasis/scarring. No focal infiltrate, consolidation, or large effusion. 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 Bony thorax intact with osteopenia and mild degenerative changes. Impression: Nonacute chest with chronic features.
[2024-04-14] MEDS ORDERED: NON-FORMULARY ITEM (Albuterol Sulfate [Proair Digihaler] 90 MCG Aer.Pw.Bas) IH SCH (10:00)
[2024-04-14] MEDS ORDERED: Spiriva 18 Mcg/Cap Inhaler IH SCH (10:00)
[2024-04-14] MEDS: HUMALOG SQ PRN (12:23)
[2024-04-14] MEDS: ROCEPHIN 1 GM / 100 ML NaCl 1 GM/100 ML IVPB IV SCH (21:30)
[2024-04-15 07:33] VITALS: TEMP 97.8
[2024-04-15 08:46] LABS: Hematocrit 39.9 % (40.1-51.0); Hemoglobin 12.3 g/dL (13.7-17.5); Mean Cell Volume 94.1 fL (79.0-92.2); Mean Corpuscular Hgb Concent. 30.8 g/dL (32.3-36.5); Mean Platelet Volume 10.7 fL (9.4-12.4); Platelet Count 146 x10^3/uL (163-337); Red Blood Count 4.24 x10^6/uL (4.63-6.08); Red Cell Distribution Width 12.4 % (11.6-14.4); White Blood Count 18.4 x10^3/uL (4.23-9.07)
[2024-04-15 09:06] LABS: ALBUMIN 3.7 g/dL (3.5-5.0); ANION GAP 11.8 MEQ/L (5-15); BILIRUBIN,TOTAL 0.7 mg/dL (0.2-1.3); Calcium 8.6 mg/dL (8.4-10.2); Creatinine 1 1.02 mg/dL (0.66-1.25); EST GLOMERULAR FILTRATION RATE 78.6 ML/MIN; Potassium 4.1 mmol/L (3.5-5.1); Total Protein 6.9 g/dL (6.3-8.2)
[2024-04-15] MEDS ORDERED: Miralax Powder 17GM PACKET PO SCH (11:00)
--- NOTE | 2024-04-15 11:38 | PCM.DS ---
Discharge Summary Date of Admission: 04/14/24 02:33 Date of Discharge: 04/15/24 Admitting Physician: JOSE BARKSDALE MD Consults: Consults on Case 04/14/24 03:44 Case Management SDOH DC Needs Assessment ROUTINE Primary Care Provider: NO FAMILY DOCTOR Allergies Allergies Penicillins Allergy (Verified 04/13/24 23:41) Hospital Summary - Hospital Course Hospital Course: 04/16/24 is a 73 year old male with a history of COPD (not on home oxygen), CHF, hyperlipidemia, atrial fibrillation/flutter, and HTN. He was brought in by the gear nicker service on 04/13/24 because of worsening shortness of breath throughout the day. Apparently, per paramedics, who provided additional independent infor mation secondary to patient's clinical condition, patient started having worsening shortness of breath that morning. Paramedics were called that evening and patient was found in his car getting ready to drive to the emergency department. Patient states he recently quick smoking tobacco cigarettes. He was found to be hypoxic on arrival by paramedics. Patient was given a DuoNeb, Solu-Medrol 125 mg, nitroglycerin sublingually and Nitropaste to help with management of his potential CHF issues per paramedics. Patient arrived to our emergency department in atrial flutter with a heart rate of 101, respiratory rate of 17 breaths/min and 96% on CPAP. Patient has a history of atrial fibrillation/flutter and is taking Coreg and lisinopril for hypertension. Patient is also on Eliquis. He demonstrated significant improvement after initial therapy with improved dypsnea, and weaned to oxygen per NC. A Geiger had been placed in the ED, and removed. HIs observation time is up. He is clinically doing well. Lung sounds are clear. He is on 2lNC at 100%. He has never worn oxygen before and hesitant to have oxygen at home. This was discussed in detail by this provider, RT, and strong encouragement by Dr. Barksdale. He decided he would go home with oxygen. He will need to f/u with PCP and pulmonology OP. He denies CP, Abd. pain, N/V/D. Will continue antibiotics and steroids OP. He is wanting neb refills. - Vitals & Intake/Output Vital Signs: Vital Signs Temperature 97.8 F 04/15/24 07:32 Pulse Rate 93 H 04/15/24 07:32 Respiratory Rate 18 04/15/24 07:32 Blood Pressure 125/61 04/15/24 07:32 O2 Sat by Pulse Oximetry 98 04/15/24 07:32 Intake & Output: Intake & Output 04/12/24 04/13/24 04/14/24 04/15/24 11:59 11:59 11:59 11:59 Intake Total 340 3056 Output Total 320 Balance 20 3056 Weight 80.2 kg 83.1 kg - Lab Result Diagrams: 04/15/24 08:30 04/15/24 08:30 Lab Results-Last 24 Hrs: Lab Results-Last 24 Hours 04/14/24 04/14/24 04/14/24 Range/Units 11:43 16:27 22:08 WBC (4.23-9.07) x10^3/uL RBC (4.63-6.08) x10^6/uL Hgb (13.7-17.5) g/dL Hct (40.1-51.0) % MCV (79.0-92.2) fL MCH (25.7-32.2) pg MCHC (32.3-36.5) g/dL RDW (11.6-14.4) % Plt Count (163-337) x10^3/uL MPV (9.4-12.4) fL Sodium (135-145) mmol/L Potassium (3.5-5.1) mmol/L Chloride (98-107) mmol/L Carbon Dioxide (22-30) mmol/L Anion Gap (5-15) MEQ/L BUN (9-20) mg/dL Creatinine (0.66-1.25) mg/dL Estimated GFR ML/MIN Glucose (74-106) mg/dL POC Glucometer 221 H 177 H 171 H (74 to 106) mg/dL Calcium (8.4-10.2) mg/dL Total Bilirubin (0.2-1.3) mg/dL AST (17-59) U/L ALT (0-50) U/L Alkaline Phosphatase (38-126) U/L Serum Total Protein (6.3-8.2) g/dL Albumin (3.5-5.0) g/dL 04/15/24 04/15/24 04/15/24 Range/Units 07:17 08:30 08:30 WBC 18.4 H (4.23-9.07) x10^3/uL RBC 4.24 L (4.63-6.08) x10^6/uL Hgb 12.3 L (13.7-17.5) g/dL Hct 39.9 L (40.1-51.0) % MCV 94.1 H (79.0-92.2) fL MCH 29.0 (25.7-32.2) pg MCHC 30.8 L (32.3-36.5) g/dL RDW 12.4 (11.6-14.4) % Plt Count 146 L (163-337) x10^3/uL MPV 10.7 (9.4-12.4) fL Sodium 138 (135-145) mmol/L Potassium 4.1 (3.5-5.1) mmol/L Chloride 104 (98-107) mmol/L Carbon Dioxide 26 (22-30) mmol/L Anion Gap 11.8 (5-15) MEQ/L BUN 18 (9-20) mg/dL Creatinine 1.02 (0.66-1.25) mg/dL Estimated GFR 78.6 ML/MIN Glucose 173 H (74-106) mg/dL POC Glucometer 151 H (74 to 106) mg/dL Calcium 8.6 (8.4-10.2) mg/dL Total Bilirubin 0.70 (0.2-1.3) mg/dL AST 25 (17-59) U/L ALT 29 (0-50) U/L Alkaline Phosphatase 129 H (38-126) U/L Serum Total Protein 6.9 (6.3-8.2) g/dL Albumin 3.7 (3.5-5.0) g/dL Micro Results-Entire Visit: Microbiology 04/14/24 00:17 Urine Culture - Final Catherized <10K NORMAL SKIN MARICEL PROBABLE SKIN CONTAMINANT 04/13/24 23:55 Blood Culture - Preliminary Blood 04/13/24 00:10 Blood Culture - Preliminary Blood Accuchecks Date 04/15/24 Date 04/14/24 Date 04/14/24 Time 07:31 - Radiology Exams Ordered Rad Exams-Entire Visit: Radiology Procedures Category Date Time Status CHEST 1 VIEW (PORTABLE) Stat Exams 04/13/24 23:46 Completed - Procedures and Test Procedures and Tests throughout Hospitalization: Therapy Orders & Screens 04/13/24 23:45 BiPap/CPAP STAT Comment: 04/14/24 00:13 Respiratory Therapy Assessment DAILY Comment: 04/14/24 02:51 EKG REPEAT IN AM Comment: Respiratory Therapy Consult ONCE Comment: Reason For Exam: 04/14/24 02:53 PT Eval & Treat (MD Order) ONCE Reason for Eval:: assess ambulatory oxygen needs and mobilty/transfer capability Diagnosis: COPD 04/14/24 03:32 RT Screen per Nursing Assess ONCE Comment: Protocol Order Physician Instructions: Greater than 3 points order RT Admission Screen Reason For Exam: Triggered on Admission Diagnosis: COPD Diagnosis: COPD Pneumonia: Yes Home O2: No Asthma: No CHF: No Home CPAP/BIPAP: No Home Nebs/MDI: Yes Total Points: 8 ST Screen per Nursing Assess ONCE Comment: Protocol Order Physician Instructions: Greater than [address] Admission Screening Reason For Exam: Triggered on Admission Diagnosis: COPD CVA/Dyshpagia/Aphasia: No Cognitive Deficits: No Dehydration/Nutrition Deficit: No Reflux: No Oral-Motor Difficulties: No Pneumonia: Yes Senior Care Resident: No Total Points: 5 04/14/24 03:51 Smoking Cessation Education ONCE Comment: Diagnosis: COPD Smoking Status: Former smoker Have you smoked in the past 12 months: Yes Do you dip or chew tobacco: No 04/14/24 06:44 Oxygen NASAL CANNULA 3 lpm Comment: Diagnosis: COPD 04/15/24 07:24 RT Miscellaneous Order ROUTINE Comment: Physician Instructions: Reason For Exam: wean O2 Diagnosis: COPD Discharge Exam General Appearance: no apparent distress, alert Neurologic Exam: alert, oriented x 3, cooperative, normal mood/affect, nml cerebellar function, sensation nml, No motor deficits Eye Exam: PERRL, EOMI, eyes nml inspection Ears, Nose, Throat Exam: normal ENT inspection, pharynx normal, moist mucous membranes Neck Exam: normal inspection, non-tender, supple, full range of motion Respiratory Exam: normal breath sounds, lungs clear, No respiratory distress Cardiovascular Exam: regular rate/rhythm, normal heart sounds Gastrointestinal/Abdomen Exam: soft, No tenderness, No mass Male Genitalia Exam: deferred Rectal Exam: deferred Back Exam: normal inspection, normal range of motion, No CVA tenderness, No vertebral tenderness Extremity Exam: normal inspection, normal range of motion Skin Exam: normal color, warm, dry Final Diagnosis/Problem List - Final Discharge Diagnosis/Problem (1) Acute respiratory failure with hypoxia and hypercarbia Current Visit: Yes Status: Acute Code(s): J96.01 - ACUTE RESPIRATORY FAILURE WITH HYPOXIA; J96.02 - ACUTE RESPIRATORY FAILURE WITH HYPERCAPNIA (2) Leukocytosis Current Visit: Yes Status: Acute Code(s): D72.829 - ELEVATED WHITE BLOOD CELL COUNT, UNSPECIFIED (3) Pneumonia Current Visit: Yes Status: Acute Code(s): J18.9 - PNEUMONIA, UNSPECIFIED ORGANISM (4) UTI (urinary tract infection) Current Visit: Yes Status: Acute Assessment & Plan: (1) Acute respiratory failure with hypoxia and hypercarbia Current Visit: Yes Status: Acute Assessment & Plan: - Patiient improved with CPAP. - Continue nebs, antibiotics, steroids, and oxygen wean. - Assess ambulatory O2 needs, but patient is indicating that he will decline home O2 even if it is clinically indicated. 04/15 - After further discussion today he is a agreeable to home O2 and Case management setting this up. - BC x2 negative - Will d/c with nebs, antibiotics, steroids - F/U with PULM and PCP OP Code(s): J96.01 - ACUTE RESPIRATORY FAILURE WITH HYPOXIA; J96.02 - ACUTE RESPIRATORY FAILURE WITH HYPERCAPNIA (2) Pneumonia Current Visit: Yes Status: Acute Assessment & Plan: - Antibiotics. - Monitor clinical course. - on 2LNC 100%- unable to wean as O2 drops into 70's when removed. - Baseline RA - CXR: 04/13 Impression: Nonacute chest with chronic features Code(s): J18.9 - PNEUMONIA, UNSPECIFIED ORGANISM (3) Leukocytosis Current Visit: Yes Status: Acute Assessment & Plan: -Will monitor WBC trend, but it is noted that the patient will be on steroids. Code(s): D72.829 - ELEVATED WHITE BLOOD CELL COUNT, UNSPECIFIED (4) UTI (urinary tract infection) Current Visit: Yes Status: Acute Assessment & Plan: -IV antibiotics. - Urine culture negative. Code(s): N39.0 - URINARY TRACT INFECTION, SITE NOT SPECIFIED Code(s): N39.0 - URINARY TRACT INFECTION, SITE NOT SPECIFIED - Discharge Discharge Date: 04/15/24 Disposition: Home, Self-Care Condition: Fair Prescriptions: Continue Tiotropium [place] Inhaler [Spiriva 18 Mcg/Cap Inhaler] 2 puffs IH DAILY lisinopriL [Lisinopril] 40 mg PO DAILY Apixaban [Eliquis] 5 mg PO BID carvediloL [Coreg] 25 mg PO BID Atorvastatin Calcium [Lipitor] 20 mg PO DAILY Albuterol Sulfate [Proair Digihaler] 2 puffs IH DAILY Aspirin EC 81 mg [Ecotrin 81 mg] 1 tab PO DAILY Follow up with: DOCTOR,NO FAMILY [Primary Care Provider] -
[2024-04-15 23:43] VITALS: BP 129/63; PULSE 116; RESP 28; O2SAT 100
== END 2024-04-15 15:16 | disposition home or self-care (01) ==
LOC: ED 23:39 → MED SURG 04-14 02:33
PROVIDERS: ADMIT Internal Medicine; ATTEND Internal Medicine
DX: J96.01 Acute respiratory failure with hypoxia (principal); J96.02 Acute respiratory failure with hypercapnia; D72.829 Elevated white blood cell count, unspecified; J18.9 Pneumonia, unspecified organism; N39.0 Urinary tract infection, site not specified; J44.9 Chronic obstructive pulmonary disease, unspecified; I11.0 Hypertensive heart disease with heart failure; I50.9 Heart failure, unspecified; I48.91 Unspecified atrial fibrillation; F17.200 Nicotine dependence, unspecified, uncomplicated; Z79.01 Long term (current) use of anticoagulants; Z79.899 Other long term (current) drug therapy
CPT/HCPCS: 0241U; 36000; 36415; 36600; 51702; 71045; 80053; 81001; 82140; 82375; 82803; 82947; 83036; 83605; 83735; 83880; 84484; 85025; 85027; 85379; 86308; 87040; 87086; 93005; 93041; 94002; 94640; 94760; 94762; 96374; 97161; 99285; 99291; Q3014; 93268; J0456; J0696; J1817; J2919; A9270-GY; G0378